=== PATIENT | male | born 1945 | race Caucasian/White ===

== ENCOUNTER → 2024-06-14 16:12 | Outpatient (REF) | payer MEDICARE, SELFPAY ==
[2024-06-14 11:09] LABS: White Blood Cell Count 9.2 10^3/uL (4.8-10.8)
[2024-06-14 11:33] LABS: % Basophils 0.3 % (0-2); % Eosinophils 3.8 % (0-6); % Immature Granulocytes 0.3 % (0-0.5); % Lymphocytes 20.8 % (20.5-51.1); % Monocytes 6.9 % (1.7-9.3); % Neutrophils 67.9 % (42.2-75.2); Absolute Eosinophils 0.4 10^3/uL (0-0.7); Absolute Lymphocytes 1.9 10^3/uL (1.2-3.4); Absolute Monocytes 0.6 10^3/uL (0.1-0.6); Absolute Neutrophils 6.3 10^3/uL (1.4-6.5); Hematocrit 47.6 % (39.0-52.0); Hemoglobin 16.4 g/dL (13.0-18.0); Mean Corp Hgb Conc. 34.5 g/dL (33.0-37.0); Mean Corpuscular Hgb 35.7 pg (27.0-31.0); Mean Corpuscular Volume 103.7 fL (80.0-94.0); Mean Platelet Volume 13.8 fL (7.4-10.4); Nucleated Red Blood Cells % 0 % (-); Platelet Count 151 10^3/uL (130-400); Red Blood Cell Count 4.59 10^6/uL (4.70-6.10); Red Cell Dist. Width 12.7 % (11.5-14.5)
== END ==
LOC: OIDL 16:12
PROVIDERS: ATTENDING PHYSICIAN Internal Medicine Hematology & Oncology
DX: E83.110 Hereditary hemochromatosis (principal)
CPT/HCPCS: 85025

== ENCOUNTER → 2024-07-29 08:33 | Outpatient (REF) | payer OTHER, SELFPAY | LOC: MRI 3T 08:33 | PROVIDERS: ATTENDING PHYSICIAN Internal Medicine Hematology & Oncology; FAMILY PHYSICIAN Internal Medicine | DX: E83.110 Hereditary hemochromatosis (principal) | CPT/HCPCS: 74183; A9575 ==

== ENCOUNTER → 2024-11-01 14:22 | Outpatient (REF) | payer OTHER, SELFPAY | LOC: HWRAD 14:22 | PROVIDERS: ATTENDING PHYSICIAN Physician Assistant Surgical; FAMILY PHYSICIAN Internal Medicine | DX: M25.561 Pain in right knee (principal) | CPT/HCPCS: 73564 ==

== ENCOUNTER → 2025-06-08 12:43 | Outpatient (REF) | payer OTHER, SELFPAY | LOC: HWRCS 12:43 | PROVIDERS: ATTENDING PHYSICIAN Student in an Organized Health Care Education/Training Program; FAMILY PHYSICIAN Internal Medicine | DX: I10 Essential (primary) hypertension (principal); E83.110 Hereditary hemochromatosis | CPT/HCPCS: 93306 ==